=== PATIENT | female | born 1950 | race Caucasian/White ===

== ENCOUNTER 2017-09-30 09:19 | Emergency (ER) | payer MEDICARE, OTHER ==
[~2017-09-30] VITALS: Ht 157.5 cm; Wt 99.3 kg
--- OUTSIDE RECORDS SUMMARY | ~2017-09-30 | XMS | Encounter Summary ---
Demographics + + + | Address | [address] | | | [place] [address] | + + + | Home Phone | | + + + | Preferred Language | Unknown | + + + | Marital Status | | + + + | Presybeterian Affiliation | 1009 | + + + | Race | Unknown | + + + | Ethnic Group | Unknown | + + + Author + + + | Author | [facility] | | | and [place] | + + + | Organization | [facility] | | | and [place] | + + + | Address | Unknown | + + + | Phone | Unavailable | + + + Support + + +---------+ + | Name | Relationship | Address | Phone | + + +---------+ + | Dokka,Kin E | ECON | Unknown | | + + +---------+ + Care Team Providers + +------+ + | Care Director Of Undergraduate Admissions Name | Role | Phone | + +------+ + | Higinio Knapp MD | PCP | | + +------+ + Encounter Details +--------+ + + + + | Date | Type | Department | Care Team | Description | +--------+ + + + + | 07/02/ | Procedure | [facility] | | | | 2017 | Pass | [facility] [address] | | | | | | [place], | | | | | | [place] [address] | | | | | | [phone] | | | +--------+ + + + + Social History + + + +--------+ + | Tobacco Use | Types | Packs/Day | Years | Date | | | | | Used | | + + + +--------+ + | Former Smoker | Cigarettes | 1 | 12 | Quit: 07/16/1990 | + + + +--------+ + + +---+---+---+ | Smokeless Tobacco: | | | | | Never Used | | | | + +---+---+---+ + + +---------+ + | Alcohol Use | Drinks/We | oz/Week | Comments | | | ek | | | + + +---------+ + | No | | | | + + +---------+ + + + + | Sex Assigned at | Date Recorded | | | | + + + | Not on file | | + + + as of this encounter Plan of Treatment Not on fileas of this encounter Visit Diagnoses Not on filein this encounter"
--- OUTSIDE RECORDS SUMMARY | ~2017-09-30 | XMS | Encounter Summary ---
Demographics + + + | Address | [address] | | | [place] [address] | + + + | Home Phone | | + + + | Preferred Language | Unknown | + + + | Marital Status | | + + + | Amish Affiliation | 1009 | + + + | Race | Unknown | + + + | Ethnic Group | Unknown | + + + Author + + + | Author | [facility] | | | and [place] | + + + | Organization | [facility] | | | and [...] Team Providers + +------+ + | Care Talent Sourcer Name | Role | Phone | + +------+ + | Higinio Knapp MD | PCP | | + +------+ + Reason for Referral Diagnostic/Screening (Routine) +--------+--------+ + + + + | Status | Reason | Specialty | Diagnoses / | Referred By | Referred To | | | | | Procedures | Contact | Contact | +--------+--------+ + + + + | Closed | | Radiology | Diagnoses | Kristie Roldan | [facility] | | | | | Renal cyst | MD [address] | [address] | | | | | Procedures | [address] | [place], | | | | | MRI Abdomen | [place] | [place] | | | | | w wo | [place] | [address] | | | | | Contrast | [address] | Phone: | | | | | MRI Abdomen | Phone: | [phone] | | | | | w Contrast | [phone] | Fax: | | | | | | Fax: | [phone] | | | | | | [phone] | | +--------+--------+ + + + + Diagnostic/Screening (Routine) +--------+--------+ + + + + | Status | Reason | Specialty | Diagnoses / | Referred By | Referred To | | | | | Procedures | Contact | Contact | +--------+--------+ + + + + | Closed | | Radiology | Diagnoses | Kristie Roldan | [facility] | | | | | Renal cyst | MD [address] | [address] | | | | | Procedures | [address] | [place], | | | | | MRI Abdomen | [place] | [place] | | | | | w wo | [place] | [address] | | | | | Contrast | [address] | Phone: | | | | | MRI Abdomen | Phone: | [phone] | | | | | w Contrast | [phone] | Fax: | | | | | | Fax: | [phone] | | | | | | [phone] | | +--------+--------+ + + + + Reason for Visit Diagnostic/Screening (Routine) +--------+--------+ + + + + | Status | Reason | Specialty | Diagnoses / | Referred By | Referred To | | | | | Procedures | Contact | Contact | +--------+--------+ + + + + | Closed | | Radiology | Diagnoses | Kristie Roldan | [facility] | | | | | Renal cyst | MD [address] | [address] | | | | | Procedures | [address] | [place], | | | | | MRI Abdomen | [place] | [place] | | | | | w wo | [place] | [address] | | | | | Contrast | [address] | Phone: | | | | | MRI Abdomen | Phone: | [phone] | | | | | w Contrast | [phone] | Fax: | | | | | | Fax: | [phone] | | | | | | [phone] | | +--------+--------+ + + + + Encounter Details +--------+ + + + + | Date | Type | Department | Care Team | Description | +--------+ + + + + | 07/11/ | Hospital | [facility] | Kristie Roldan MD | Renal cyst | | 2018 | Encounter | MED CTR MRI [address] [facility] | | | | | [place], | [place] | | | | | [place] [address] | [address] | | | | | [phone] | [phone] | | | | | | | | +--------+ + + + [...] + + + as of this encounter Medications at Time of Discharge + + +-------+---------+ + + | Medication | Sig. | Disp. | Refills | Start | End Date | | | | | | Date | | + + +-------+---------+ + + | albuterol 90 | Inhale 2 puffs into | | | | | | mcg/puff inhaler | the lungs. | | | | | + + +-------+---------+ + + | chlorpheniramine | Take 4 mg by mouth | | | | | | (EQ CHLORTABS) 4 MG | every 6 hours as | | | | | | tablet | needed for | | | | | | | Allergies. | | | | | + + +-------+---------+ + + | esomeprazole | take 1 capsule by | | 0 | 05/03/19 | | | (NEXIUM) 40 mg | mouth once daily | | | 18 | | | capsule | | | | | | + + +-------+---------+ + + | gabapentin | Take 100 mg by mouth | | | | | | (NEURONTIN) 100 mg | 3 times daily. | | | | | | capsule | | | | | | + + +-------+---------+ + + | gabapentin | Take 300 mg by mouth | | | | | | (NEURONTIN) 300 mg | 3 times daily. | | | | | | capsule | | | | | | + + +-------+---------+ + + | levothyroxine | take 1 tablet by | | 0 | 05/21/19 | | | (SYNTHROID) 150 mcg | mouth every morning | | | 18 | | | tablet | ON AN EMPTY STOMACH | | | | | + + +-------+---------+ + + | lovastatin | Take 40 mg by mouth | | 0 | 11/03/19 | | | (MEVACOR) 40 MG | nightly. | | | 17 | | | tablet | | | | | | + + +-------+---------+ + + | pramipexole | Take 1 mg by mouth 3 | | | | | | (MIRAPEX) 1 MG | times daily. | | | | | | tablet | | | | | | + + +-------+---------+ + + | sertraline | | | 0 | 10/21/19 | | | (ZOLOFT) 100 mg | | | | 17 | | | tablet | | | | | | + + +-------+---------+ + + as of this encounter Plan of Treatment Not on fileas of this encounter Procedures + +--------+ + + + | Procedure Name | Priori | Date/Time | Associated Diagnosis | Comments | | | ty | | | | + +--------+ + + + | MRI ABDOMEN W WO | Routin | 07/11/2017 | Renal cyst | Results for this | | CONTRAST | e | 1035 PDT | | procedure are in the | | | | | | results section. | + +--------+ + + + in this encounter Results MRI Abdomen w wo Contrast (07/11/2017 1035) + + + | Narrative | Performed At | + + + | MRI ABDOMEN W WO CONTRAST 07/11/2017 10:22 AM HISTORY: RENAL | [facility] | | CYST. COMPARISON: 06/24/2017 PROTOCOL: Coronal T2, axial T2, | | | axial T2 fat sat, axial T1 in phase imaging, axial T1 out of phase | | | imaging, axial diffusion weighted, axial T1, axial T1 postcontrast, | | | coronal T1 postcontrast. Postcontrast images were acquired in the | | | arterial, portal venous, delayed, and hepatobiliary phases. The | | | patient was administered 10 cc Gadavist. FINDINGS: Chest base is | | | normal. The liver demonstrates normal parenchyma. The gallbladder | | | is normal. Biliary ducts are unremarkable. Redemonstration of a | | | small splenule. Remainder of the spleen is surgically absent. Adrenal | | | glands are normal. Previous identified 3.1 by a 2.5 x 2.3 cm mass | | | within the pancreatic tail which appears to be of pancreatic origin | | | (or less likely remnant splenic tissue) is reidentified and | | | demonstrates diffuse enhancement. This is overall stable since | | | 03/02/2014. Previous identified small isodense cystic lesion in the | | | mid/superior pole of the right kidney is T2 hyperintense and T1 | | | isointense. No evidence of enhancing component, compatible with a | | | simple cyst with likely minimal internal hemorrhage or proteinaceous | | | components, benign other simple subcentimeter cystic lesions are | | | identified within both kidneys. The stomach is normal. Imaged | | | small bowel and colon demonstrate no acute findings. Large epiploic | | | appendage is identified in the left greater omental region measuring | | | 3.9 cm and without evidence of suspicious postcontrast enhancement or | | | surrounding inflammatory change to suggest epiploic appendagitis. | | | Aorta is nonaneurysmal. IVC is unremarkable. No enlarged lymph nodes | | | are visualized within the omentum or retroperitoneum. There is no | | | evidence for ascites or free air. Post surgical changes are seen | | | along the anterior abdominal wall. Multiple surgical clips are | | | identified within the mesentery and left retroperitoneal region. | | | There are no acute osseous abnormalities. IMPRESSION - | | | Previous identified isodense lesion along the mid/superior anterior | | | aspect of the right kidney represents a benign simple cyst with | | | likely minimal internal proteinaceous or hemorrhagic debris. | | | -Bosniak category 2: Benign with no further follow-up imaging needed. | | | Previous identified 3.1 by a 2.5 x 2.3 cm mass within the | | | pancreatic tail which appears to be of pancreatic origin (or less | | | likely remnant splenic tissue) is reidentified and demonstrates | | | diffuse enhancement. This is overall stable since 03/02/2014. | | | -Differential is unclear. Given its long-term stability, this most | | | likely represents a benign entity with a slow-growing pancreatic | | | neoplasm not excluded. -Surveillance imaging in one year may be | | | considered to assess continued stability. Large epiploic | | | appendage is identified in the left greater omental region measuring | | | 3.9 cm, without evidence of suspicious postcontrast enhancement or | | | surrounding inflammatory change to suggest epiploic appendagitis. | | | Dictated and Signed by: Sanju Oscar MD Electronically signed: | | | 07/11/2017 2:24 PM | | + + + + + | Procedure Note | + + | Wade, Rad Results In - 07/11/2017 1427 PDT MRI ABDOMEN W WO CONTRAST 07/11/2017 10:22 | | AMHISTORY: RENAL CYST.COMPARISON: 06/24/2017PROTOCOL: Coronal T2, axial T2, axial T2 fat | | sat, axial T1 in phase imaging,axial T1 out of phase imaging, axial diffusion weighted, | | axial T1, axial [id number], coronal T1 postcontrast. Postcontrast images were | | acquired in thearterial, portal venous, delayed, and hepatobiliary phases. The patient | | wasadministered 10 cc Gadavist.FINDINGS:Chest base is normal.The liver demonstrates | | normal parenchyma. The gallbladder is normal. Biliaryducts are | | unremarkable.Redemonstration of a small splenule. Remainder of the spleen is | | surgicallyabsent. Adrenal glands are normal.Previous identified 3.1 by a 2.5 x 2.3 cm | | mass within the pancreatic tail whichappears to be of pancreatic origin (or less likely | | remnant splenic tissue) isreidentified and demonstrates diffuse enhancement. This is | | overall stable since03/02/2014.Previous identified small isodense cystic lesion in the | | mid/superior pole of theright kidney is T2 hyperintense and T1 isointense. No evidence | | of enhancingcomponent, compatible with a simple cyst with likely minimal internal | | hemorrhageor proteinaceous components, benign other simple subcentimeter cystic | | lesionsare identified within both kidneys.The stomach is normal. Imaged small bowel and | | colon demonstrate no acutefindings. Large epiploic appendage is identified in the left | | greater omentalregion measuring 3.9 cm and without evidence of suspicious | | postcontrastenhancement or surrounding inflammatory change to suggest epiploic | | appendagitis.Aorta is nonaneurysmal. IVC is unremarkable. No enlarged lymph nodes | | arevisualized within the omentum or retroperitoneum.There is no evidence for ascites or | | free air.Post surgical changes are seen along the anterior abdominal wall. | | Multiplesurgical clips are identified within the mesentery and left | | retroperitonealregion. There are no acute osseous abnormalities.IMPRESSION -Previous | | identified isodense lesion along the mid/superior anterior aspect ofthe right kidney | | represents a benign simple cyst with likely minimal internalproteinaceous or hemorrhagic | | debris. -Bosniak category 2: Benign with no further follow-up imaging needed.Previous | | identified 3.1 by a 2.5 x 2.3 cm mass within the pancreatic tail whichappears to be of | | pancreatic origin (or less likely remnant splenic tissue) isreidentified and | | demonstrates diffuse enhancement. This is overall stable since03/02/2014.-Differential is | | unclear. Given its long-term stability, this most likelyrepresents a benign entity with | | a slow-growing pancreatic neoplasm not excluded.-Surveillance imaging in one year may | | be considered to assess continuedstability.Large epiploic appendage is identified in the | | left greater omental regionmeasuring 3.9 cm, without evidence of suspicious | | postcontrast enhancement orsurrounding inflammatory change to suggest epiploic | | appendagitis.Dictated and Signed by: Sanju Oscar MD Electronically signed: 07/11/2017 | | 2:24 PM | |Aorta is nonaneurysmal. IVC is unremarkable. No enlarged lymph nodes are | |visualized within the omentum or retroperitoneum. | | | |There is no evidence for ascites or free air. | | | |Post surgical changes are seen along the anterior abdominal wall. Multiple | |surgical clips are identified within the mesentery and left retroperitoneal | |region. There are no acute osseous abnormalities. | | | | | | | |IMPRESSION - | |Previous identified isodense lesion along the mid/superior anterior aspect of | |the right kidney represents a benign simple cyst with likely minimal internal | |proteinaceous or hemorrhagic debris. | |-Bosniak category 2: Benign with no further follow-up imaging needed. | | | |Previous identified 3.1 by a 2.5 x 2.3 cm mass within the pancreatic tail which | |appears to be of pancreatic origin (or less likely remnant splenic tissue) is | |reidentified and demonstrates diffuse enhancement. This is overall stable since | |03/02/2014. | |-Differential is unclear. Given its long-term stability, this most likely | |represents a benign entity with a slow-growing pancreatic neoplasm not excluded. | |-Surveillance imaging in one year may be considered to assess continued | |stability. | | | | | |Large epiploic appendage is identified in the left greater omental region | |measuring 3.9 cm, without evidence of suspicious postcontrast enhancement or | |surrounding inflammatory change to suggest epiploic appendagitis. | | | |Dictated and Signed by: Sanju Oscar MD | | Electronically signed: 07/11/2017 2:24 PM | + + + +---------+ + + | Performing | Address | City/State/Zipcode | Phone Number | | Organization | | | | + +---------+ + + | [facility] | | | | + +---------+ + + in this encounter Visit Diagnoses + + | Diagnosis | + + | Renal cyst | + + | Unspecified congenital cystic kidney disease | + + Administered Medications + +--------+ +--------+------+------+ | Medication Order | MAR | Action | Dose | Rate | Site | | | Action | Date | | | | + +--------+ +--------+------+------+ | gadobutrol (GADAVIST) injection | Given | | 10 mLs | | | | 10 mL 10 mL, Intravenous, ONCE | | 8 10:26 | | | | | PRN, Other, Starting Yoli 07/11/17 | | PDT | | | | | at 1025, For 1 dose, MRI | | | | | | + +--------+ +--------+------+------+ +---+---+ | | | +---+---+ in this encounter"
--- OUTSIDE RECORDS SUMMARY | ~2017-09-30 | XMS | Clinical Summary ---
Demographics + + + | Address | [address] | | | [place] [address] | + + + | Home Phone | | + + + | Preferred Language | Unknown | + + + | Marital Status | | + + + | Bahai Affiliation | Unknown | + + + | Race | Unknown | + + + | Ethnic Group | Unknown | + + + Author + + + | Author | [facility] | + + + | Organization | [facility] | + + + | Address | Unknown | + + + | Phone | Unavailable | + + + Support + + + + + | Name | Relationship | Address | Phone | + + + + + | Message,Detail | ECON | Unknown | | + + + + + | Kin Avila | ECON | [address] | | | | | [place] | | | | | [phone] | | + + + + + Care Team Providers + +------+ + | Care Retinal Angiographer Name | Role | Phone | + +------+ + | Carlos Lowe DO | PP | | + +------+ + Allergies + + + + + + | Active Allergy | Reactions | Severity | Noted | Comments | | | | | Date | | + + + + + + | Codeine | Nausea and Vomiting | Low | 02/09/20 | | | | | | 14 | | + + + + + + | Morphine | Nausea and Vomiting, | Medium | 02/09/20 | Chest Pains | | | Other (See | | 14 | | | | Comments) | | | | + + + + + + | Oxycodone | Nausea and Vomiting | Low | 02/09/20 | | | | | | 14 | | + + + + + + | Vancomycin | Other (See Comments) | High | 02/09/20 | Kidney Failure | | | | | 14 | | + + + + + + Current Medications + + + +---------+------+------+-------+ | Prescription | Sig. | Disp. | Refills | Star | End | Statu | | | | | | t | Date | s | | | | | | Date | | | + + + +---------+------+------+-------+ | gabapentin | Take 300 mg by mouth | | | | | Activ | | (NEURONTIN) 300 MG | nightly. | | | | | e | | capsule | | | | | | | + + + +---------+------+------+-------+ | pramipexole | Take 0.125 mg by | | | | | Activ | | (MIRAPEX) 0.125 MG | mouth 3 (three) | | | | | e | | tablet | times daily. | | | | | | + + + +---------+------+------+-------+ | omeprazole | Take 40 mg by mouth | | | | | Activ | | (PRILOSEC) 40 MG | every morning before | | | | | e | | capsule | breakfast. | | | | | | + + + +---------+------+------+-------+ | levothyroxine | Take 137 mcg by | | | | | Activ | | (SYNTHROID) 137 MCG | mouth every morning | | | | | e | | tablet | before breakfast. | | | | | | + + + +---------+------+------+-------+ | Cranberry 125 MG | Take by mouth. | | | | | Activ | | TABS | | | | | | e | + + + +---------+------+------+-------+ | fexofenadine | Take 60 mg by mouth | | | | | Activ | | (JING) 60 MG | daily. | | | | | e | | tablet | | | | | | | + + + +---------+------+------+-------+ | aspirin 81 MG EC | Take 81 mg by mouth | | | | | Activ | | tablet | daily with | | | | | e | | | breakfast. | | | | | | + + + +---------+------+------+-------+ | albuterol (PROAIR | Inhale 2 puffs into | | | | | Activ | | HFA) 108 (90 BASE) | the lungs every 4 | | | | | e | | MCG/ACT inhaler | (four) hours as | | | | | | | | needed for Wheezing. | | | | | | + + + +---------+------+------+-------+ | calcium carbonate | Take 600 mg by mouth | | | | | Activ | | (OS-JERMAINE) 600 MG TABS | 2 (two) times daily | | | | | e | | | with meals. | | | | | | + + + +---------+------+------+-------+ | Vitamin D, | Take by mouth. | | | | | Activ | | Cholecalciferol, | | | | | | e | | 1000 UNITS TABS | | | | | | | + + + +---------+------+------+-------+ | diclofenac dodium | Take 100 mg by mouth | | | | | Activ | | CR (VOLTAREN XR) 100 | daily with | | | | | e | | MG 24 hr tablet | breakfast. | | | | | | + + + +---------+------+------+-------+ | diphenhydrAMINE | Take 25 mg by mouth | | | | | Activ | | (SOMINEX) 25 MG | nightly as needed | | | | | e | | tablet | for Sleep. | | | | | | + + + +---------+------+------+-------+ | Ferrous Sulfate | Take 325 mg by | | | | | Activ | | (IRON) 325 (65 FE) | mouth. | | | | | e | | MG TABS | | | | | | | + + + +---------+------+------+-------+ | sertraline | Take 25 mg by mouth | | | | | Activ | | (ZOLOFT) 25 MG | daily. | | | | | e | | tablet | | | | | | | + + + +---------+------+------+-------+ | [place] 3-6-9 Fatty | Take by mouth. | | | | | Activ | | Acids (TRIPLE | | | | | | e | | OMEGA-3-6-9 PO) | | | | | | | + + + +---------+------+------+-------+ | cyanocobalamin | Take 100 mcg by | | | | | Activ | | (VITAMIN B-12) 100 | mouth daily. | | | | | e | | MCG tablet | | | | | | | + + + +---------+------+------+-------+ | pyridoxine | Take 100 mg by mouth | | | | | Activ | | (VITAMIN B-6) 100 MG | daily. | | | | | e | | tablet | | | | | | | + + + +---------+------+------+-------+ | ascorbic acid | Take 1,000 mg by | | | | | Activ | | (VITAMIN C) 1000 MG | mouth daily. | | | | | e | | tablet | | | | | | | + + + +---------+------+------+-------+ | Cholecalciferol | Take by mouth. | | | | | Activ | | (VITAMIN D3) 5000 | | | | | | e | | UNITS TABS | | | | | | | + + + +---------+------+------+-------+ | barium (READI-CAT) | Take barium oral | 900 mL | 0 | 01/1 | | Activ | | 2.1 % SUSP | prep per included | | | 3/20 | | e | | | written | | | 15 | | | | | instructions. | | | | | | + + + +---------+------+------+-------+ | gabapentin | Take 100 mg by mouth | | | | | Activ | | (NEURONTIN) 100 MG | 2 (two) times | | | | | e | | capsule | daily. 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 | + + + Family History + + +------+ + | Medical History | Relation | Name | Comments | + + +------+ + | Diabetes type II | Mother | | | + + +------+ + | Heart disease | Mother | | | + + +------+ + + +------+--------+ + | Relation | Name | Status | Comments | + +------+--------+ + | Mother | | | | + +------+--------+ + Social History + +-------+ +--------+------+ | Tobacco Use | Types | Packs/Day | Years | Date | | | | | Used | | + +-------+ +--------+------+ | Former Smoker | | 1 | 15 | | + +-------+ +--------+------+ + +---+---+---+ | Smokeless Tobacco: | | [...] on file | | + + + Last Filed Vital Signs + + + + | Vital Sign | Reading | Time Taken | + + + + | Blood Pressure | 142/83 | 04/20/2014 1:40 PM PST | + + + + | Pulse | 74 | 04/20/2014 1:40 PM PST | + + + + | Temperature | 36.7 C (98 F) | 04/05/2014 1:36 PM PST | + + + + | Respiratory Rate | 15 | 04/05/2014 1:36 PM PST | + + + + | Oxygen Saturation | 95% | 04/20/2014 1:40 PM PST | + + + + | Inhaled Oxygen | - | - | | Concentration | | | + + + + | Weight | 108.9 kg (240 lb 1.3 | 04/05/2014 9:09 AM PST | | | oz) | | + + + + | Height | 157.5 cm (5' 2") | 04/05/2014 9:09 AM PST | + + + + | Body Mass Index | 43.91 | 04/05/2014 9:09 AM PST | + + + + Plan of Treatment + + + + + | Health Maintenance | Due Date | Last Done | Comments | + + + + + | Vaccine: | | | | | Dtap/Tdap/Td (1 - | 1 | | | | Tdap) | | | | + + + + + | DEXA SCAN SCREENING | | | | | | 7 | | | + + + + + | Vaccine: | | | | | Pneumococcal 65+ | 7 | | | | Low/Medium Risk (1 | | | | | of 2 - PCV13) | | | | + + + + + | Vaccine: Influenza | | | | | (#1) | 8 | | | + + + + + Implants + +------+--------+ +--------+--------+--------+ | Implanted | Type | Area | Manufacture | Device | Expira | Model | | | | | r | | tion | / | | | | | | Identi | Date | Serial | | | | | | fier | | / Lot | + +------+--------+ +--------+--------+--------+ | Mesh Ventralex [place] W/Strap | | N/A: | [employer] | | 12/18/ | [id number] | | [address] [employer] - | | Abdome | ick | | 2015 | / | | [id number]: Qty: 1 on | | n | | | | /[id number] | | 04/05/2014 by Kin Richards, | | | | | | 028 | | MD | | | | | | | + +------+--------+ +--------+--------+--------+ Results Not on filefrom Last 3 Months Insurance + +--------+ +------+-------+ + | Payer | Benefi | Subscriber | Type | Phone | Address | | | t Plan | ID | | | | | | / | | | | | | | Group | | | | | + +--------+ +------+-------+ + | [employer] [place] - | [employer] | [id number] | | | [address] [address] | | [place] | [place] | | | | [place] | | | | | | | [phone] | + +--------+ +------+-------+ + + +--------+ +--------+ + + | Guarantor Name | Accoun | Relation to | Date | Phone | Billing Address | | | t Type | Patient | of | | | | | | | | | | + +--------+ +--------+ + + | MAHESH AVIL[place] | Person | Self [birth year] | Home: | [address] | | [address]/Fam | | 1950 | [phone] [place] | | | [place] | | | [phone] | [phone] | + +--------+ +--------+ + +
--- OUTSIDE RECORDS SUMMARY | ~2017-09-30 | XMS | Encounter Summary ---
Demographics + + + | Address | [address] | | | [place] [address] | + + + | Home Phone | | + + + | Preferred Language | Unknown | + + + | Marital Status | | + + + | Episcopalian Affiliation | 1009 | + + + | Race | Unknown | + + + | Ethnic Group | Unknown | + + + Author + + + | Author | [facility] | | | and [place] | + + + | Organization | [facility] | | | [...] Team Providers + +------+ + | Care Powerhouse Electrician Apprentice Name | Role | Phone | + +------+ + | Higinio Knapp MD | PCP | | + +------+ + Encounter Details +--------+ + + + + | Date | Type | Department | Care Team | Description | +--------+ + + + + | 07/05/ | Hospital | [facility] | Kristie Roldan MD | Nausea | | 2018 | Encounter | MED CTR XRAY [address] | [address] | | | | | [place] | [place], [place] | | | | | [place] [address] | [address] | | | | | [phone] | [phone] | | | | | | | | | | | | Rad, [facility] | | +--------+ + + + + [...] 1 capsule by | | 0 | 03/15/20 | | | (NEXIUM) 40 mg | [...] | + +--------+ + + + | [facility] | Routin | 07/05/2017 | Nausea | Results for this | | | e | 0808 PDT | | procedure are in the | | | | | | results section. | + +--------+ + + + in this encounter Results [facility] (07/05/2017 0808) + + + | Narrative | Performed At | + + + | DOUBLE CONTRAST UPPER GI 07/05/2017 8:06 AM CLINICAL HISTORY: | [facility] | | Nausea and multiple previous surgeries COMPARISON: CT JUNE 24 | | | TECHNIQUE: In the upright position, the patient ingested effervescent | | | crystals with a small amount of water. Fluoroscopic evaluation of | | | the thoracic esophagus was performed during swallows of thick | | | barium. The patient was placed horizontal, and additional | | | fluoroscopic evaluation of the stomach and duodenum | | | performed. Additional fluoroscopic evaluation of the esophagus was | | | performed during swallows of thin barium. Multiple spot images | | | were saved. The patient tolerated the procedure well, and there | | | were no complications. FINDINGS: Incomplete opening of the upper | | | esophageal sphincter is noted. The oropharynx and hypopharynx are | | | grossly unremarkable. The esophagus is normal in caliber and | | | demonstrates smooth contour without visible mucosal abnormality or | | | filling defect. Nonpropulsive tertiary esophageal contractions are | | | noted and there is stasis of contrast in the esophageal | | | lumen. Gastroesophageal reflux into the upper esophagus is noted | | | during the exam with changes in patient position. The stomach | | | demonstrates uniform smaller caliber than expected, corresponding | | | with changes of gastric surgery visible on recent CT imaging. There | | | is filling of a small structure along the margin of the | | | gastroesophageal junction demonstrating folds suggestive of a | | | paraesophageal hiatus hernia, which remains opacified throughout the | | | exam. The gastric folds are uniformly prominent, however no | | | conclusive filling defect or suspicious contour irregularity is | | | apparent. There is brisk passage of contrast into the duodenum, | | | however a defined duodenal bulb is not conclusively identified and | | | numerous surgical clips in the vicinity suggest potential altered | | | anatomy. No abnormality of the duodenal folds is | | | apparent. Contrast opacification of normal caliber jejunal | | | segments is noted at the conclusion of the exam. IMPRESSION - | | | 1. PROBABLE SMALL PARAESOPHAGEAL HIATUS HERNIA WITH | | | GASTROESOPHAGEAL REFLUX AND ESOPHAGEAL DYSMOTILITY | | | DESCRIBED. INCOMPLETE OPENING OF THE UPPER ESOPHAGEAL SPHINCTER IS | | | NOTED. 2. REDUCED CALIBER OF THE STOMACH AND SUBJECTIVE | | | PROMINENCE OF THE GASTRIC FOLDS WITH PROBABLE ALTERED ANATOMY AT THE | | | GASTRODUODENAL JUNCTION DISCUSSED. Dictated and Signed by: | | | Ollie Mederos MD Electronically signed: 07/05/2017 8:26 AM | | + + + + + | Procedure Note | + + | Wade, Rad Results In - 07/05/2017 0829 PDT DOUBLE CONTRAST UPPER GI 07/05/2017 8:06 AM | | | | CLINICAL HISTORY: Nausea and multiple previous surgeries | | | | COMPARISON: CT JUNE 24 | | | | TECHNIQUE: In the upright position, the patient ingested effervescent crystals | | with a small amount of water. Fluoroscopic evaluation of the thoracic esophagus | | was performed during swallows of thick barium. The patient was placed | | horizontal, and additional fluoroscopic evaluation of the stomach and duodenum | | performed. Additional fluoroscopic evaluation of the esophagus was performed | | during swallows of thin barium. Multiple spot images were saved. The patient | | tolerated the procedure well, and there were no complications. | | | | FINDINGS: Incomplete opening of the upper esophageal sphincter is noted. The | | oropharynx and hypopharynx are grossly unremarkable. The esophagus is normal in | | caliber and demonstrates smooth contour without visible mucosal abnormality or | | filling defect. Nonpropulsive tertiary esophageal contractions are noted and | | there is stasis of contrast in the esophageal lumen. Gastroesophageal reflux | | into the upper esophagus is noted during the exam with changes in patient | | position. | | | | The stomach demonstrates uniform smaller caliber than expected, corresponding | | with changes of gastric surgery visible on recent CT imaging. There is filling | | of a small structure along the margin of the gastroesophageal junction | | demonstrating folds suggestive of a paraesophageal hiatus hernia, which remains | | opacified throughout the exam. The gastric folds are uniformly prominent, | | however no conclusive filling defect or suspicious contour irregularity is | | apparent. There is brisk passage of contrast into the duodenum, however a | | defined duodenal bulb is not conclusively identified and numerous surgical clips | | in the vicinity suggest potential altered anatomy. No abnormality of the | | duodenal folds is apparent. Contrast opacification of normal caliber jejunal | | segments is noted at the conclusion of the exam. | | | | IMPRESSION - | | 1. PROBABLE SMALL PARAESOPHAGEAL HIATUS HERNIA WITH GASTROESOPHAGEAL REFLUX AND | | ESOPHAGEAL DYSMOTILITY DESCRIBED. INCOMPLETE OPENING OF THE UPPER ESOPHAGEAL | | SPHINCTER IS NOTED. | | | | 2. REDUCED CALIBER OF THE STOMACH AND SUBJECTIVE PROMINENCE OF THE GASTRIC | | FOLDS WITH PROBABLE ALTERED ANATOMY AT THE GASTRODUODENAL JUNCTION DISCUSSED. | | | | Dictated and Signed by: Ollie Mederos MD | | Electronically signed: 07/05/2017 8:26 AM | + + + +---------+ + + | Performing | Address | City/State/Zipcode | Phone Number | | Organization | | | | + +---------+ + + | [facility] | | | | + +---------+ + + in this encounter Visit Diagnoses + + | Diagnosis | + + | Nausea | + + | Nausea alone | + + Administered Medications + +--------+ +---------+------+------+ | Medication Order | MAR | Action | Dose | Rate | Site | | | Action | Date | | | | + +--------+ +---------+------+------+ | barium (E-Z-HD) 98% contrast | Given | | 135 mLs | | | | suspension 135 mL 135 mL, Oral, | | 8 8:08 | | | | | ONCE PRN, Other, Starting Fri | | PDT | | | | | 07/05/17 at 0806, For 1 dose, | | | | | | | Shake well. | | | | | | + +--------+ +---------+------+------+ +---+---+ | | | +---+---+ + +-------+ +--------+---+---+ | barium (LIQUID E-Z-PAQUE) 60% | Given | | 45 mLs | | | | contrast suspension 45 mL 45 mL, | | 8 8:08 | | | | | Oral, ONCE PRN, Other, Starting | | PDT | | | | | 07/05/17 at 0806, For 1 dose, | | | | | | | Shake well. | | | | | | + +-------+ +--------+---+---+ +---+---+ | | | +---+---+ in this encounter"
--- OUTSIDE RECORDS SUMMARY | ~2017-09-30 | XMS | Clinical Summary ---
Demographics + + + | Address | [address] | | | [place] [address] | + + + | Home Phone | | + + + | Preferred Language | Unknown | + + + | Marital Status | | + + + | Mu-Ism Affiliation | BAP | + + + | Race | White | + + + | Ethnic Group | Not or | + + + Author + + + | Author | [facility] | + + + | Organization | [facility] | + + + | Address | Unknown | + + + | Phone | Unavailable | + + + Support + + + + + | Name | Relationship | Address | Phone | + + + + + | Kin Avila | ECON | [address] | | | | | [place] | | | | | [address] | | + + + + + Care Team Providers + +------+ + | Care Contracting Engineer Name | Role | Phone | + +------+ + | Michael Calzada MD | PP | | + +------+ + Source Comments JAIDA is fully live on both [facility] Ambulatory and [facility] InPatient.[facility] Allergies + + + + + + | Active Allergy | Reactions | Severity | Noted | Comments | | | | | Date | | + + + + + + | Codeine | | | 07/05/19 | Pt stated it makes | | | | | 11 | her feel like her | | | | | | chest is going to | | | | | | explode, that she | | | | | | can't lay down, | | | | | | can't stand up and | | | | | | after a period | | | | | | finally the | | | | | | sensation resolves | + + + + + + | Morphine | | | 07/05/19 | Pt reported the | | | | | 11 | she has the same | | | | | | chest discomfort | | | | | | with Morphine as | | | | | | with codeine. She | | | | | | denied having this | | | | | | response from the | | | | | | dilaudid she | | | | | | received earlier to | | | | | | day. | + + + + + + | Oxycodone Hcl | | | 07/05/19 | | | | | | 11 | | + + + + + + Current Medications + + + +---------+------+------+-------+ | Prescription | Sig. | Disp. | Refills | Star | End | Statu | | | | | | t | Date | s | | | | | | Date | | | + + + +---------+------+------+-------+ | albuterol 0.083% | Inhale 2.5 mg every | | | | | Activ | | 2.5 mg /3 mL (0.083 | four hours as | | | | | e | | %) Inhalation | needed. | | | | | | | Solution for | | | | | | | | Nebulization | | | | | | | + + + +---------+------+------+-------+ | Levothyroxine 137 | Take 137 mcg by | | | | | Activ | | mcg Oral Capsule | mouth once daily. | | | | | e | + + + +---------+------+------+-------+ | albuterol (PROAIR | Inhale 2 Puffs every | | | | | Activ | | HFA) 90 | four hours as | | | | | e | | mcg/Actuation | needed. | | | | | | | Inhalation HFA | | | | | | | | Aerosol Inhaler | | | | | | | + + + +---------+------+------+-------+ | acetaminophen 325 | Take 1-2 Tabs by | | | 05/2 | | Activ | | mg Oral Tablet | mouth every four | | | 6/20 | | e | | | hours as needed. | | | 11 | | | + + + +---------+------+------+-------+ | bisacodyl 10 mg | Insert 1 Suppository | | | 05/2 | | Activ | | Rectal Suppository | rectally once daily | | | 08/07 | | e | | | as needed for | | | 11 | | | | | constipation. | | | | | | + + + +---------+------+------+-------+ | docusate sodium | Take 1 Cap by mouth | | | 05/2 | | Activ | | 100 mg Oral Capsule | two times daily. | | | 6 | | e | | | | | | 11 | | | + + + +---------+------+------+-------+ | enoxaparin 30 | Inject 0.3 mL under | | | 05/2 | | Activ | | mg/0.3 mL | the skin (SUBC) once | | | 620 | | e | | Subcutaneous Syringe | daily in the | | | 11 | | | | | evening. | | | | | | + + + +---------+------+------+-------+ | HYDROmorphone | Inject 0.5-1 mg into | | | 05/2 | | Activ | | | the vein (IV) every | | | 6/20 | | e | | | two hours as | | | 11 | | | | | needed. | | | | | | + + + +---------+------+------+-------+ | HYDROmorphone 2 mg | Take 1 Tab by mouth | | 0 | 05/2 | | Activ | | Oral Tablet | every three hours as | | | 6/20 | | e | | | needed for severe | | | 11 | | | | | pain. | | | | | | + + + +---------+------+------+-------+ | nitroglycerin 0.4 | Place 1 Tab under | 25 Tab | | 05/2 | | Activ | | mg Sublingual | tongue every five | | | 6/20 | | e | | Tablet, Sublingual | minutes as needed | | | 11 | | | | | for chest pain. Do | | | | | | | | not crush. Place | | | | | | | | under tongue and | | | | | | | | allow to dissolve. | | | | | | | | Administer every 5 | | | | | | | | minutes for a | | | | | | | | maximum of 3 doses | | | | | | | | in 15 minutes. | | | | | | + + + +---------+------+------+-------+ | omeprazole 20 mg | Take 1 Cap by mouth | | | /2 | | Activ | | Oral Capsule, | once daily. | | | 08/07 | | e | | Delayed | | | | 11 | | | | Release(E.C.) | | | | | | | + + + +---------+------+------+-------+ | ondansetron 4 mg/2 | Inject 2 mL into the | | | /2 | | Activ | | mL Injection | vein (IV) every | | | 08/07 | | e | | Solution | twelve hours as | | | 11 | | | | | needed. | | | | | | + + + +---------+------+------+-------+ | polyethylene | Take 17 g by mouth | 119 g | | /2 | | Activ | | glycol 17 gram/dose | twice daily as | | | 08/07 | | e | | Oral Powder | needed. | | | 11 | | | + + + +---------+------+------+-------+ | prochlorperazine 5 | Inject 0.5-1 mL into | | | 05/2 | | Activ | | mg/mL Injection | the vein (IV) every | | | 620 | | e | | Solution | four hours as | | | 11 | | | | | needed. | | | | | | + + + +---------+------+------+-------+ | temazepam 30 mg | Take 1 Cap by mouth | | | 05/2 | | Activ | | Oral Capsule | once daily at | | | 20 | | e | | | bedtime as needed. | | | 11 | | | + + + +---------+------+------+-------+ | calcium carbonate | Take 1 Tab by mouth | | | 05/2 | | Activ | | chewable 200 mg | three times daily. | | | 620 | | e | | calcium (500 mg) | | | | 11 | | | | Oral Tablet, | | | | | | | | Chewable | | | | | | | + + + +---------+------+------+-------+ | doxepin 10 mg Oral | Take 1 Cap by mouth | | | /2 | | Activ | | Capsule | once daily at | | | 08/07 | | e | | | bedtime. | | | 11 | | | + + + +---------+------+------+-------+ | sertraline | Take 1 Tab by mouth | | | /2 | | Activ | | (ZOLOFT) 50 mg Oral | once daily. 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 | + + + + + | Hypothyroid | 07/05/2010 | + + + | Pulmonary embolism (HCC) | 07/05/2010 | + + + + + | Overview: History of PE 05/29 in [place]. No record of | | anticoagulation. Records requested. | + + + + + | Atrial fibrillation (HCC) | 07/05/2010 | + + + | Abdominal abscess | 07/04/2010 | + + + | Hypoxia | 07/04/2010 | + + + Immunizations + + + + | Name | Dates Previously Given | Next Due | + + + + | Hib-HbOC | 07/07/2010 | | + + + + | MPSV4 | 07/07/2010 | | + + + + | Pneumococcal 23 | 07/07/2010 | | + + + + Family History + + +------+ + | Medical History | Relation | Name | Comments | + + +------+ + | Diabetes | Mother | | | + + +------+ + | Heart Disease | Mother | | | + + +------+ + + +------+--------+ + | Relation | Name | Status | Comments | + +------+--------+ + | Mother | | | | + +------+--------+ + Social History + +-------+ +--------+------+ | Tobacco Use | Types | Packs/Day | Years | Date | | | | | Used | | + +-------+ +--------+------+ | Never Smoker | | | | | + +-------+ +--------+------+ + + + | Sex Assigned at | Date Recorded | | | | + + + | Not on file | | + + + Last Filed Vital Signs + + + + | Vital Sign | Reading | Time Taken | + + + + | Blood Pressure | 133/78 | 07/13/2010 8:20 AM PDT | + + + + | Pulse | 74 | 07/13/2010 8:20 AM PDT | + + + + | Temperature | 36.9 C (98.4 F) | 07/13/2010 8:20 AM PDT | + + + + | Respiratory Rate | 16 | 07/13/2010 8:20 AM PDT | + + + + | Oxygen Saturation | 89% | 07/13/2010 8:20 AM PDT | + + + + | Inhaled Oxygen | - | - | | Concentration | | | + + + + | Weight | 111.6 kg (246 lb) | 07/04/2010 6:46 PM PDT | + + + + | Height | 160 cm (5' 3") | 07/04/2010 6:46 PM PDT | + + + + | Body Mass Index | 43.58 | 07/04/2010 6:46 PM PDT | + + + + Plan of Treatment + + + + + | Health Maintenance | Due Date | Last Done | Comments | + + + + + | INFLUENZA VACCINE | | | | | (FLU SHOT) | 8 | | | + + + + + Results Not on filefrom Last 3 Months Insurance + +--------+ +------+-------+---------+ | Payer | Benefi | Subscriber | Type | Phone | Address | | | t Plan | ID | | | | | | / | | | | | | | Group | | | | | + +--------+ +------+-------+---------+ | [facility] | [place] | xxxxxxxxx | PPO | | | | | | | | | | | | HEALTH | | | | | | | CARE | | | | | + +--------+ +------+-------+---------+ + +--------+ +--------+ + + | Guarantor Name | Accoun | Relation to | Date | Phone | Billing Address | | | t Type | Patient | of | | | | | | | | | | + +--------+ +--------+ + + | MAHESH AVILA | Person | Self [birth year] Home: | [address] | | | al/Fam | | 1951 | [phone] | [place] | | | [place] | | | [phone] | + +--------+ +--------+ + +
--- OUTSIDE RECORDS SUMMARY | ~2017-09-30 | XMS | Clinical Summary ---
Demographics + + + | Address | [address] | | | [place] [address] | + + + | Home Phone | | + + + | Preferred Language | Unknown | + + + | Marital Status | | + + + | Mandaeism Affiliation | Unknown | + + + | Race | Unknown | + + + | Ethnic Group | Unknown | + + + Author + + + | Author | [facility] | + + + | Organization | [facility] [employer] | + + + | Address | [...] [place] | | | | | [address] | | + + + + + Care Team Providers + +------+ + | Care Glaze Wiper Name | Role | Phone | + [...] | | + + + +---------+------+------+-------+ | [place] 3-6-9 Fatty | Take by mouth. | [...] | + +------+--------+ +--------+--------+--------+ | [facility] [employer] [place] W/Strap | | N/A: | [facility] | | 12/18/ | [id number] | | [address] [facility] - | | Abdome | ick | | 2015 | / | | [id number]: Qty: 1 on | | n | [...] VEDA - J[place]ON - | CHAMPV | [id number] | | | [address] [address] | | [place] | [place] | | | | [place] | | | | | | | [address] | + +--------+ +------+-------+ + + +--------+ [...] | | al/Fam | | 1950 | [phone] | [place] | | | [place] | | | [phone] | [phone] | + +--------+ +--------+ + +
--- OUTSIDE RECORDS SUMMARY | ~2017-09-30 | XMS | Encounter Summary ---
Demographics + + + | Address | [address] | | | [place] [address] | + + + | Home Phone | | + + + | Preferred Language | Unknown | + + + | Marital Status | | + + + | Catholic Affiliation | 1009 | + + + | Race | Unknown | + + + | Ethnic Group | Unknown | + + + Author + + + | Author | [facility] | | | and [place] | + + + | Organization | [facility] | | | [...] Team Providers + +------+ + | Care Assurance Engineer Name | Role | Phone | [...] W | | | | | | [place], | | | | | | [place] [address] | | | | | | [phone] | | | +--------+ + + + [...]
--- OUTSIDE RECORDS SUMMARY | ~2017-09-30 | XMS | Encounter Summary ---
Demographics + + + | Address | [address] | | | [place] [address] | + + + | Home Phone | | + + + | Preferred Language | Unknown | + + + | Marital Status | | + + + | Adventist Affiliation | 1009 | + + + | Race | Unknown | + + + | Ethnic Group | Unknown | + + + Author + + + | Author | [facility] | | | and [place] | + + + | Organization | [facility] | | | [...] Team Providers + +------+ + | Care Welding Machine Operator Gas Name | Role | Phone | + [...] | MD Kelvin [address] | [address] | | | | | Procedures | [address] | [place], | | | | | MRI Abdomen | [place] | [place] | | | | | w wo | [place] | [address] | | | | | Contrast | [address] | Phone: | | | | | MRI Abdomen | Phone: | [phone] | | | | | w Contrast | [phone] | Fax: | | | | | | Fax: | [phone] | | | | | | [phone] | | +--------+--------+ + + + + Encounter Details +--------+ + + + + | Date | Type | Department | Care Team | Description | +--------+ + + + + | 07/02/ | Ancillary | [facility] | Kristie Roldan MD | Renal cyst | | 2018 | Orders | MED CTR XRAY [address] | [address] | | | | | [place] | [place], [place] | | | | | [place] [address] | [address] | | | | | [phone] | [phone] | | | | | | | [...] Treatment Not on fileas of this encounter Results MRI Abdomen w wo [...] diffusion weighted, | | axial T1, axial [id number], coronal T1 postcontrast. Postcontrast images were | [...] Unspecified congenital cystic kidney disease | + +"
--- OUTSIDE RECORDS SUMMARY | ~2017-09-30 | XMS | Encounter Summary ---
Demographics + + + | Address | [address] | | | [place] [address] | + + + | Home Phone | | + + + | Preferred Language | Unknown | + + + | Marital Status | | + + + | Hindu Affiliation | 1009 | + + + | Race | Unknown | + + + | Ethnic Group | Unknown | + + + Author + + + | Author | [facility] | | | and [place] | + + + | Organization | [facility] | | | and [...] Team Providers + +------+ + | Care Elastic Attacher Overlock Name | Role | Phone | + +------+ + | Higinio Knapp MD | PCP | | + +------+ + Encounter Details +--------+ + + + + | Date | Type | Department | Care Team | Description | +--------+ + + + + | 07/05/ | Hospital | [facility] | Kristie Roldan MD | Nausea | | 2018 | Encounter | MED CTR XRAY [address] | [address] | | | | | [place] | [place], [place] | | | | | [place] [address] | [address] | | | | | [phone] | [phone] | | | | | | | [...]
--- OUTSIDE RECORDS SUMMARY | ~2017-09-30 | XMS | Clinical Summary ---
Demographics + + + | Address | [address] | | | [place] [address] | + + + | Home Phone | | + + + | Preferred Language | Unknown | + + + | Marital Status | | + + + | Orthodoxy Affiliation | BAP | + + + [...] + | Kin Avila | ECON | [address] | | | | | [place] | | | | | [address] | | + + + + + Care Team Providers + +------+ + | Care Car Barn Laborer Name | Role | Phone | + +------+ + | Michael Calzada MD | PP | | + +------+ + Source Comments JAIDA is fully live on both [facility] Ambulatory and [facility] InPatient.[facility] Allergies + + + + + + [...] | | | + +--------+ +------+-------+---------+ | [facility] | UNITED | xxxxxxxxx | PPO | [...] | [place] | | | [phone] | [phone] | + +--------+ +--------+ + +
--- OUTSIDE RECORDS SUMMARY | ~2017-09-30 | XMS | Clinical Summary ---
Demographics + + + | Address | [address] | | | [place] [address] | + + + | Home Phone | | + + + | Preferred Language | Unknown | + + + | Marital Status | | + + + | Zoroastrian Affiliation | 1009 | + + + | Race | Unknown | + + + | Ethnic Group | Unknown | + + + Author + + + | Author | [facility] | | | and [place] | + + + | Organization | [facility] | | | [...] Team Providers + +------+ + | Care Food Services Coordinator Name | Role | Phone | + +------+ + | Higinio Knapp MD | PP | | + +------+ + Allergies + + + + + + | Active Allergy | Reactions | Severity | Noted | Comments | | | | | Date | | + + + + + + | Codeine | Nausea And Vomiting | High | 10/27/19 | Chest pains | | | | | 14 | | + + + + + + | Morphine | Nausea And Vomiting | High | 10/27/19 | Chest pain | | | | | 14 | | + + + + + + | Oxycodone | Nausea And Vomiting | High | 10/27/19 | Chest pain. | | | | | 14 | | + + + + + + | Vancomycin | Other (See Comments) | High | 10/27/19 | Stops kidney's. | | | | | 14 | | + + + + + + Current Medications + + +-------+---------+------+------+-------+ | Prescription | Sig. | Disp. | Refills | Star | End | Statu | | | | | | t | Date | s | | | | | | Date | | | + + +-------+---------+------+------+-------+ | sertraline | | | 0 | 09/0 | | Activ | | (ZOLOFT) 100 mg | | | | 2/20 | | e | | tablet | | | | 17 | | | + + +-------+---------+------+------+-------+ | lovastatin | Take 40 mg by mouth | | 0 | 09/1 | | Activ | | (MEVACOR) 40 MG | nightly. | | | 5/20 | | e | | tablet | | | | 17 | | | + + +-------+---------+------+------+-------+ | chlorpheniramine | Take 4 mg by mouth | | | | | Activ | | (EQ CHLORTABS) 4 MG | every 6 hours as | | | | | e | | tablet | needed for | | | | | | | | Allergies. | | | | | | + + +-------+---------+------+------+-------+ | gabapentin | Take 300 mg by mouth | | | | | Activ | | (NEURONTIN) 300 mg | 3 times daily. | | | | | e | | capsule | | | | | | | + + +-------+---------+------+------+-------+ | gabapentin | Take 100 mg by mouth | | | | | Activ | | (NEURONTIN) 100 mg | 3 times daily. | | | | | e | | capsule | | | | | | | + + +-------+---------+------+------+-------+ | pramipexole | Take 1 mg by mouth 3 | | | | | Activ | | (MIRAPEX) 1 MG | times daily. | | | | | e | | tablet | | | | | | | + + +-------+---------+------+------+-------+ | esomeprazole | take 1 capsule by | | 0 | 03/1 | | Activ | | (NEXIUM) 40 mg | mouth once daily | | | 5/20 | | e | | capsule | | | | 18 | | | + + +-------+---------+------+------+-------+ | levothyroxine | take 1 tablet by | | 0 | 04/0 | | Activ | | (SYNTHROID) 150 mcg | mouth every morning | | | 2/20 | | e | | tablet | ON AN EMPTY STOMACH | | | 18 | | | + + +-------+---------+------+------+-------+ | albuterol 90 | Inhale 2 puffs into | | | | | Activ | | mcg/puff inhaler | the lungs. | | | | | e | + + +-------+---------+------+------+-------+ Active Problems + + + | Problem | Noted Date | + + + | Sacroiliitis, not elsewhere classified ([facility]) | 08/09/2015 | + + + | Sacroiliitis ([facility]) | 07/11/2015 | + + + | Carpal tunnel syndrome, left | 05/24/2015 | + + + | Obesity, Class III, BMI 40-49.9 (morbid obesity) ([facility]) | 09/07/2014 | + + + | S/P lumbar fusion | 09/03/2014 | + + + | Meralgia paresthetica of right side | 11/10/2013 | + + + | Foraminal stenosis of lumbar region | 11/10/2013 | + + + | Degenerative disc disease, lumbar | 11/10/2013 | + + + | Lumbar radiculopathy | 11/10/2013 | + + + | Facet arthropathy, lumbar (HCC) | 11/10/2013 | + + + Resolved Problems + + + + | Problem | Noted | Resolved | | | Date | Date | + + + + | Carpal tunnel syndrome, bilateral | 12/17/19 | | | | 15 | 6 | + + + + Encounters +--------+ + + + + | Date | Type | Specialty | Care Team | Description | +--------+ + + + + | 07/11/ | Hospital | | Kristie Roldan MD | Renal cyst | | 2017 | Encounter | | | | +--------+ + + + + | 07/05/ | Hospital | | Kristie Roldan MD | Nausea | | 2017 | Encounter | | Brennon Claire Rad | | +--------+ + + + + | 07/02/ | Procedure | | | | 2017 | Pass | | | | +--------+ + + + + | 07/02/ | Ancillary | | Kristie Roldan MD | Renal cyst | | 2018 | Orders | | | | +--------+ + + + + from Last 3 Months Family History + + +------+ + | Medical History | Relation | Name | Comments | + + +------+ + | Bleeding problems | Mother | | Blood clots | + + +------+ + | Diabetes | Mother | | | + + +------+ + | Heart disease | Mother | | | + + +------+ + | High blood pressure | Mother | | | + + +------+ + + +------+ + + | Relation | Name | Status | Comments | + +------+ + + | Father | | | | + +------+ + + | Mother | | | | + +------+ + + Social History + + + [...] + + + | Blood Pressure | 143/85 | 05/29/2017 0750 PDT | + + + + | Pulse | 86 | 05/29/2017749 PDT | + + + + | Temperature | 37.1 C (98.8 F) | 05/29/2017724 PDT | + + + + | Respiratory Rate | 14 | 05/29/2017724 PDT | + + + + | Oxygen Saturation | 94% | 05/29/2017749 PDT | + + + + | Inhaled Oxygen | - | - | | Concentration | | | + + + + | Weight | 117.3 kg (258 lb 9.6 | 05/29/2017618 PDT | | | oz) | | + + + + | Height | 160 cm (5' 3") | 05/29/2017618 PDT | + + + + | Body Mass Index | 45.81 | 05/29/2017618 PDT | + + + + Plan of Treatment + + + + + | Health Maintenance | Due Date | Last Done | Comments | + + + + + | Hepatitis C | | | | | Screening | 2 | | | + + + + + | Vaccine: | | | | | Dtap/Tdap/Td (1 - | 1 | | | | Tdap) | | | | + + + + + | BREAST CANCER | | | | | SCREENING (MAMM Q2 | 2 | | | | YEARS 50-74) | | | | + + + + + | Colorectal Cancer | | 02/18/2001 | | | Screening | 2 | | | | (Colonoscopy) | | | | + + + [...] / Lot | + +------+--------+ +--------+--------+--------+ | Bone Matrix Osteocel Pro 5cc | | N/A: | NUVASIVE - | | 07/09/ | [id number] | | - [id number]: Qty: 1 | | Spine | NVSV | | 2019 | 5 | | on 09/08/2014 by Bao Riley | | Lumbar | | | | /[id number] | | MD Krista | | | | | | 0511 / | + +------+--------+ +--------+--------+--------+ | Imp Spn Spcr 6 Deg 13x27 - | | N/A: | [employer] - | | 02/08/ | [id number] | | [id number]: Qty: 1 on | | Spine | MEDT | | 2019 | 7 / | | 09/08/2014 by Bao Riley, | | Lumbar | | | | /[id number] | | | | | | | | | + +------+--------+ +--------+--------+--------+ | Screw 4.75 Xtb Rhonda Mas | | N/A: | [employer] - | | | [id number] | | 6.5x50 - [id number]: | | Spine | MEDT | | | [id number] | | Qty: 2 on 09/08/2014 by Osvaldo, | | Lumbar | | | | / / | | Bao Velasco MD | | | | | | | + +------+--------+ +--------+--------+--------+ | Screw 4.75 Xtb Rhonda Mas | | N/A: | [employer] - | | | [id number] | | 7.5x45 - [id number]: | | Spine | MEDT | | | [id number] | | Qty: 2 on 09/08/2014 by Osvaldo, | | Lumbar | | | | / / | | Bao Velasco MD | | | | | | | + +------+--------+ +--------+--------+--------+ | Screw Set Slra Perc Ti 4.75 - | | N/A: | [employer] - | | | [id number] | | [id number]: Qty: 4 | | Spine | MEDT | | | 0 / / | | on 09/08/2014 by Bao Riley | | Lumbar | | | | | Alyse Velasco MD | | | | | | | + +------+--------+ +--------+--------+--------+ | Hema Perc Str Ccm 4.75m34hk - | | N/A: | [employer] - | | | [id number] | | [id number]: Qty: 2 on | | Spine | MEDT | | | 035 / | | 09/08/2014 by Bao Riley, | | Lumbar | | | | / | | MD | | | | | | | + +------+--------+ +--------+--------+--------+ | Bone Canc Chip 15cc 4-10mm - | | N/A: | RTI | | | [id number] | | [id number]: Qty: 1 | | Spine | BIOLOGICS | | | | | on 09/08/2014 by Bao Riley | | Lumbar | INC - RBIO | | | /[id number] | | MD Krista | | | | | | 1-033 | | | | | | | | / | + +------+--------+ +--------+--------+--------+ Procedures + +--------+ + + + | [...] section. | + +--------+ + + + | FL UGI | Routin | 07/05/2017 | Nausea | Results for this | | | e | 0808 PDT | | procedure are in the | | | | | | results section. | + +--------+ + + + from Last 3 Months Results MRI Abdomen w wo Contrast (07/11/2017 [...] diffusion weighted, | | axial T1, axial H4augosoiwemlx, coronal T1 postcontrast. Postcontrast images were | [...] | | | + +---------+ + + FL UGI (07/05/2017 0808) + + + [...] | | | + +---------+ + + from Last 3 Months Insurance + +--------+ +--------+ +---------+ | Payer | Benefi | Subscriber | Type | Phone | Address | | | t Plan | ID | | | | | | / | | | | | | | Group | | | | | + +--------+ +--------+ +---------+ | | CHAMPV | [id number] | Indemn | [phone] | | | A | | ity | [phone] | | + +--------+ +--------+ +---------+ | MEDICARE | MEDICA | [id number] | Medica | [phone] | | | | RE | | re | [phone] | | | | PART A | | | | | | | AND B | | | | | + +--------+ +--------+ +---------+ + +--------+ +--------+ + + | Guarantor Name | Accoun | Relation to | Date | Phone | Billing Address | | | t Type | Patient | of | | | | | | | | | | + +--------+ +--------+ + + | MERE AVILA | Person | Self [birth year] | Home: | [address] | | [place] | al/Fam | | [address] | +- | [place] | | | karla | | | [phone] | [address] | + +--------+ +--------+ + + | MERE AVILA | Third | Self | [birth year] | Home: | [address] | | [place]E | [place] | | 1950 | +- | [place] | | | Liabil | | | [phone] | [address] | | | ity | | | | | + +--------+ +--------+ + +
--- OUTSIDE RECORDS SUMMARY | ~2017-09-30 | XMS | Encounter Summary ---
Demographics + + + | Address | [address] | | | [place] [address] | + + + | Home Phone | | + + + | Preferred Language | Unknown | + + + | Marital Status | | + + + | Yazdanism Affiliation | 1009 | + + + | Race | Unknown | + + + | Ethnic Group | Unknown | + + + Author + + + | Author | [facility] | | | and [place] | + + + | Organization | [facility] | | | and [...] Team Providers + +------+ + | Care Aboriginal Education Teacher Name | Role | Phone | + [...] | MD Kelvin 55 | [address] | | | | | Procedures | [address] | [place], | | | | | MRI Abdomen | [place] | [place] | | | | | w wo | [place] | [address] | | | | | Contrast | [address] | Phone: | | | | | MRI Abdomen | Phone: | [phone] | | | | | w Contrast | [phone] | Fax: | | | | | | Fax: | [phone] | | | | | | [phone] | | +--------+--------+ + + + + Encounter Details +--------+ + + + + | Date | Type | Department | Care Team | Description | +--------+ + + + + | 07/02/ | Ancillary | [facility] | Kristie Roldan MD | Renal cyst | | 2018 | Orders | MED CTR XRAY [address] | | | | | [place] | [place], [place] | | | | | [place] [address] | [address] | | | | | [phone] | [phone] | | | | | | | [...] diffusion weighted, | | axial T1, axial S3ikyxqlruanrn, coronal T1 postcontrast. Postcontrast images were | [...]
--- OUTSIDE RECORDS SUMMARY | ~2017-09-30 | XMS | Clinical Summary ---
Demographics + + + | Address | [address] | | | [place] [address] | + + + | Home Phone | | + + + | Preferred Language | Unknown | + + + | Marital Status | | + + + | Faith Affiliation | 1009 | + + + | Race | Unknown | + + + | Ethnic Group | Unknown | + + + Author + + + | Author | [facility] | | | and [place] | + + + | Organization | [facility] | | | [...] Team Providers + +------+ + | Care Trust Mail Clerk Name | Role | Phone | + [...] + + | Sacroiliitis, not elsewhere classified ([facility]) | 08/09/2015 | + + + | Sacroiliitis ([facility]) | 07/11/2015 | + + + | Carpal tunnel syndrome, left | 05/24/2015 | + + + | Obesity, Class III, BMI 40-49.9 (morbid obesity) ([facility]) | 09/07/2014 | + + + | [...] | NUVASIVE - | | 07/09/ | [id number] | | - [id number]: Qty: 1 | | Spine | NVSV | | 2019 | 5 | | on 09/08/2014 by Bao Riley | | Lumbar | | | | /[id number] | | MD Krista | | | | | | 0511 / | + +------+--------+ +--------+--------+--------+ | Imp Spn Spcr 6 Deg 13x27 - | | N/A: | [employer] - | | 02/08/ | [id number] | | [id number]: Qty: 1 on | | Spine | MEDT | | 2019 | 7 / | | 09/08/2014 by Bao Riley, | | Lumbar | | | | /[id number] | | | | | | | | | + +------+--------+ +--------+--------+--------+ | Screw 4.75 Xtb Rhonda Mas | | N/A: | [employer] - | | | [id number] | | 6.5x50 - [id number]: | | Spine | MEDT | | | [id number] | | Qty: 2 on 09/08/2014 by Osvaldo, | | Lumbar | | | | / / | | Bao Velasco MD | | | | | | | + +------+--------+ +--------+--------+--------+ | Screw 4.75 Xtb Rhonda Mas | | N/A: | [employer] - | | | [id number] | | 7.5x45 - [id number]: | | Spine | MEDT | | | [id number] | | Qty: 2 on 09/08/2014 by Osvaldo, | | Lumbar | | | | / / | | Bao Velasco MD | | | | | | | + +------+--------+ +--------+--------+--------+ | Screw Set Slra Perc Ti 4.75 - | | N/A: | [employer] - | | | [id number] | | [id number]: Qty: 4 | | Spine | MEDT | | | 0 / / | | on 09/08/2014 by Bao Riley | | Lumbar | | | | | Alyse Velasco MD | | | | | | | + +------+--------+ +--------+--------+--------+ | Hema Perc Str Ccm 4.96n01dq - | | N/A: | [employer] - | | | [id number] | | [id number]: Qty: 2 on | | Spine | MEDT | | | 035 / | | 09/08/2014 by Bao Riley, | | Lumbar | | | | / | | MD | | | | | | | + +------+--------+ +--------+--------+--------+ | Bone Canc Chip 15cc 4-10mm - | | N/A: | RTI | | | [id number] | | [id number]: Qty: 1 | | Spine | BIOLOGICS | | | | | on 09/08/2014 by Bao Riley | | Lumbar | INC - RBIO | | | /[id number] | | MD Krista | | | [...] diffusion weighted, | | axial T1, axial Y6jklvmtgrqnda, coronal T1 postcontrast. Postcontrast images were | [...] +--------+ +--------+ +---------+ | | CHAMPV | [id number] | Indemn | [phone] | | | | A | | ity | [phone] | | + +--------+ +--------+ +---------+ | MEDICARE | MEDICA | [id number] | Medica | [phone] | | | [...] Self | [birth year] | Home: | [address] | | [place]NA[place] | al/Fam | | [address] | +- | [place] | | | karla | | | [phone] | [address] | + +--------+ +--------+ + + | MERE AVILA | Third | Self | [birth year] | Home: | [address] | | [place]E | [place] | | 1950 | +- | [place] | | | [place] | | | [phone] | [address] | | | ity | | | | | + +--------+ +--------+ + +
--- OUTSIDE RECORDS SUMMARY | ~2017-09-30 | XMS | Encounter Summary ---
Demographics + + + | Address | [address] | | | [place] [address] | + + + | Home Phone | | + + + | Preferred Language | Unknown | + + + | Marital Status | | + + + | Worship Affiliation | 1009 | + + + | Race | Unknown | + + + | Ethnic Group | Unknown | + + + Author + + + | Author | [facility] | | | and [place] | + + + | Organization | [facility] | | | [...] Team Providers + +------+ + | Care Geoint Analyst Name | Role | Phone | + [...] | MD Kelvin 55 | [address] | | | | | Procedures | [address] | [place], | | | | | MRI Abdomen | [place] | [place] | | | | | w wo | [place] | [address] | | | | | Contrast | [address] | Phone: | | | | | MRI Abdomen | Phone: | [phone] | | | | | w Contrast | [phone] | Fax: | | | | | | Fax: | [phone] | | | | | | [phone] | | +--------+--------+ + + + + [...] | MD Kelvin 55 | [address] | | | | | Procedures | [address] | [place], | | | | | MRI Abdomen | [place] | [place] | | | | | w wo | [place] | [address] | | | | | Contrast | [address] | Phone: | | | | | MRI Abdomen | Phone: | [phone] | | | | | w Contrast | [phone] | Fax: | | | | | | Fax: | [phone] | | | | | | [phone] | | +--------+--------+ + + + + [...] | MD Kelvin 55 | [address] | | | | | Procedures | [address] | [place], | | | | | MRI Abdomen | [place] | [place] | | | | | w wo | [place] | [address] | | | | | Contrast | [address] | Phone: | | | | | MRI Abdomen | Phone: | [phone] | | | | | w Contrast | [phone] | Fax: | | | | | | Fax: | [phone] | | | | | | [phone] | | +--------+--------+ + + + + Encounter Details +--------+ + + + + | Date | Type | Department | Care Team | Description | +--------+ + + + + | 07/11/ | Hospital | [facility] | Kristie Roldan MD | Renal cyst | | 2018 | Encounter | MED CTR MRI [address] [facility] | | | | | [place], | [place] | | | | | [place] [address] | [address] | | | | | [phone] | [phone] | | | | | | | [...] diffusion weighted, | | axial T1, axial B2aspdrwzodvgu, coronal T1 postcontrast. Postcontrast images were | [...]
[~2017-09-30 09:19] MED LIST: ALLEGRA60 MG PO; ASPIRIN EC81 MG PO; CALCIUM600 MG PO; CARAFATE1 GM PO; CHLORTABS4 MG PO; CRANBERRY200 MG PO; CYCLOBENZAPRINE10 MG PO; DICLOFENAC SODI25 MG PO; DIPHENHYDRAMINE25 MG PO; ESOMEPRAZOLE MA40 MG PO; GABAPENTIN100 MG PO; GABAPENTIN300 MG PO; HYDROCODON-ACE1 EA10 PO; LEVOXYL25 MCG PO; LOVASTATIN40 MG PO; MIRAPEX1 MG PO; NITROSTAT0.4 MG SL; ONE DAILY WOME1 EACH PO; PRILOSEC20 MG PO; PROAIR HFA8.5 GM IH; PROVENTIL HFA6.7 GM INH; SERTRALINE HCL50 MG PO; VITAMIN D1000 UNI1 PO
[2017-09-30] MEDS ORDERED: ZOFRAN ODT4 MG PO (13:33)
== END 2017-09-30 13:37 | disposition home or self-care (01) ==
LOC: ED 09:19
DX: R11.2 Nausea with vomiting, unspecified (principal); Z88.5 Allergy status to narcotic agent; Z88.1 Allergy status to other antibiotic agents; Z98.890 Other specified postprocedural states
CPT/HCPCS: 74177; 80053; 81001; 82150; 83605; 83690; 85025; 96361; 96374; 99284; J2405; J7030; Q9967

== ENCOUNTER 2021-04-09 14:50 | Emergency (ER) | payer MEDICARE, OTHER ==
[~2021-04-09] VITALS: Ht 157.5 cm; Wt 82.5 kg
[~2021-04-09 14:50] MED LIST changes: +KETOROLAC TROME10 MG PO; +LINZESS145 MCG PO; +ZOFRAN ODT4 MG PO
[2021-04-09] MEDS ORDERED: LEVOTHYROXINE125 MCG PO (15:15)
[2021-04-09] MEDS ORDERED: LEVOTHYROXINE137 MCG PO (15:15)
--- NOTE | 2021-04-11 13:43 | EKG ---
[facility] [address] [facility] [place] [address] Signed Normal sinus rhythm Normal ECG Confirmed by CATRACHO SIMS MD ([id number]) on 04/11/2021 1:42:54 PM Electronically Signed By: CATRACHO SIMS MD 04/11/21 1343 PATIENT NAME: MAHESH GALLAGHER SHANAE Electrocardiogram DATE OF : 52 PHYSICIAN: CATRACHO SIMS MD REPORT #: [id number] REPORT IS CONFIDENTIAL AND NOT TO BE RELEASED WITHOUT AUTHORIZATION
== END 2021-04-09 18:50 | disposition home or self-care (01) ==
LOC: ED 14:50
DX: R07.89 Other chest pain (principal); K21.9 Gastro-esophageal reflux disease without esophagitis; Z88.5 Allergy status to narcotic agent; Z88.1 Allergy status to other antibiotic agents; Z79.899 Other long term (current) drug therapy; Z79.51 Long term (current) use of inhaled steroids
CPT/HCPCS: 36415; 71046; 80053; 83690; 83735; 84484; 85025; 85379; 93005; 93010; 96374; 96375; 96376; 99285-25; A9270; J1170; J2405

== ENCOUNTER 2024-10-05 13:28 | Emergency (ER) | payer MEDICARE ==
[~2024-10-05] VITALS: Ht 157.5 cm; Wt 90.8 kg
[~2024-10-05 13:28] MED LIST changes: +LEVOTHYROXINE112 MCG; +LEVOTHYROXINE137 MCG PO
--- OUTSIDE RECORDS SUMMARY | 2024-10-05 13:38 | XMS ---
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 E.Shelli VISIT COUNT (12 MO.) [address] [place] [address] [facility] TOTAL 2 NOTE: Visits indicate total known visits. ED/UCC VISIT TRACKING (12 MO.) 10/05/2024 13:31 OZZY Couch TYPE: Emergency COMPLAINT: - DIARRHEA 09/17/2024 09:07 Roxanna Murray MD TYPE: Emergency COMPLAINT: - ANESTHESIA OF SKIN - CHEST PAIN UNSPECIFIED - Chest Pain_chest pain - OTHER SPEC SOFT TISSUE DISORDERS DIAGNOSES: 0. Chest pain, unspecified 1. Anxiety disorder, unspecified 5. Other chest pain 6. Hypothyroidism, unspecified 7. Gastro-esophageal reflux disease without esophagitis 8. 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 Personal history of nicotine dependence 10. Hormone replacement therapy 11. Other mcc (current) drug therapy INPATIENT VISIT TRACKING (12 MO.) No inpatient visits to display in this time frame [email or web address]
[2024-10-05] MEDS ORDERED: SPIRONOLACTONE25 MG PO (17:40)
[2024-10-05] MEDS ORDERED: PREDNISOLONE ACE5 ML OPTH (17:41)
[2024-10-05 17:51] LABS: ALT (SGPT) 36.0 U/L (14-59); AST (SGOT) 63.0 U/L (15-37); GLOMERULAR FILTRATION RATE,EST 51.0 mL/min (>60); PROTEIN, TOTAL 6.1 g/dL (6.4-8.2); UREA NITROGEN 8.0 mg/dL (7-18)
[2024-10-05] MEDS ORDERED: FUROSEMIDE 40 MG/4 ML VIAL IV ONE (19:15)
[2024-10-05] MEDS ORDERED: GABAPENTIN 300 MG CAP PO ONE (19:15)
[2024-10-05] MEDS ORDERED: POTASSIUM CHLORIDE 10 MEQ TABCR PO ONE ×2 (19:15→21:00)
[2024-10-05] MEDS ORDERED: KETOROLAC TROMETHAMINE 30 MG/ML VIAL IV ONE (19:45)
[2024-10-05 19:52] LABS: BLOOD/HGB, URINE NEGATIVE (Negative); KETONE, URINE NEGATIVE (Negative); LEUK ESTERASE, URINE NEGATIVE (negative); NITRITE, URINE NEGATIVE (negative)
[2024-10-05] MEDS ORDERED: NEURONTIN100 MG PO (20:57)
[2024-10-05] MEDS ORDERED: POTASSIUM CHLO20 ME1 PO (20:58)
[2024-10-05 21:20] VITALS: BP 120/99
--- NOTE | 2024-10-06 15:48 | EKG ---
[facility] [address] [facility] [place] [address] Signed Atrial fibrillation Low voltage QRS Cannot rule out Anterior infarct , age undetermined Abnormal ECG When compared with ECG of 09-Apr-2021 15:06:07 Atrial fibrillation has replaced Normal sinus rhythm Confirmed by Luis E Benjamin MD ([id number]) on 10/06/2024 3:48:35 PM Electronically Signed By: LUIS E BENJAMIN MD 10/06/24 1548 PATIENT NAME: VIKIMAHESH LEANN Electrocardiogram DATE OF : 52 PHYSICIAN: LUIS E BENJAMIN MD REPORT #: [id number] REPORT IS CONFIDENTIAL AND NOT TO BE RELEASED WITHOUT AUTHORIZATION
== END 2024-10-05 21:23 | disposition home or self-care (01) ==
LOC: ED 13:28
PROVIDERS: Emergency Medicine
DX: R60.0 Localized edema (principal); I48.91 Unspecified atrial fibrillation; G62.9 Polyneuropathy, unspecified; Z88.5 Allergy status to narcotic agent; Z88.1 Allergy status to other antibiotic agents; Z79.890 Hormone replacement therapy; Z79.52 Long term (current) use of systemic steroids; Z79.899 Other long term (current) drug therapy
CPT/HCPCS: 36415; 71045; 80053; 81003; 83735; 85025; 87045; 87046; 93005; 93010; 96374; 96375; 99284-25; A9270; J1885; J1938

== ENCOUNTER 2024-10-28 00:24 | Emergency (ER) | payer OTHER ==
[~2024-10-28] VITALS: Ht 157.5 cm; Wt 76.0 kg
[~2024-10-28 00:24] MED LIST changes: +NEURONTIN100 MG PO; +POTASSIUM CHLO20 ME1 PO; +PREDNISOLONE ACE5 ML OPTH; +SPIRONOLACTONE25 MG PO
--- OUTSIDE RECORDS SUMMARY | 2024-10-28 00:31 | XMS ---
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 E.Shelli VISIT COUNT (12 MO.) [address] [place] [address] [facility] TOTAL 3 NOTE: Visits indicate total known visits. ED/UCC VISIT TRACKING (12 MO.) 10/28/2024 00:25 OZZY Couch TYPE: Emergency COMPLAINT: - DEHYDRATION 10/05/2024 13:31 OZZY Couch TYPE: Emergency COMPLAINT: - DIARRHEA DIAGNOSES: - Allergy status to narcotic agent - Allergy status to other antibiotic agents - Diarrhea, unspecified - Hormone replacement therapy - Localized edema - skilled nursing (current) use of systemic steroids - Other intermediate (current) drug therapy - Polyneuropathy, unspecified - Unspecified atrial fibrillation 09/17/2024 09:07 Roxanna LONG TYPE: Emergency COMPLAINT: - ANESTHESIA OF SKIN - CHEST PAIN UNSPECIFIED - Chest Pain_chest pain - OTHER SPEC SOFT TISSUE DISORDERS DIAGNOSES: 0. Chest pain, unspecified 1. Anxiety disorder, unspecified 5. Other chest pain 6. Hypothyroidism, unspecified 7. Gastro-esophageal reflux disease without esophagitis 8. skilled nursing (current) use of aspirin 9. Personal history of nicotine dependence 10. Hormone replacement therapy 11. 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
[2024-10-28] MEDS ORDERED: GABAPENTIN100 MG PO (00:39)
[2024-10-28] MEDS ORDERED: FUROSEMIDE40 MG PO (00:40)
[2024-10-28] MEDS ORDERED: ELIQUIS5 MG PO (00:41)
[2024-10-28 00:43] LABS: BASOPHILS 0.5 % (0.1-1.2); EOSINOPHILS 0.3 % (0.7-5.8); LYMPHOCYTES 34.2 % (19.3-51.7); MCH 34.2 PG (25.6-32.2); MCHC 34.7 g/dL (32.2-35.5); MCV 98.3 fL (79.4-94.8); MONOCYTES 5.7 % (4.7-12.5); NEUTROPHILS 58.3 % (34.0-71.1); RBC 3.60 M/uL (3.93-5.22)
[2024-10-28 00:58] LABS: ALT (SGPT) 23.0 U/L (14-59); AST (SGOT) 24.0 U/L (15-37); GLOMERULAR FILTRATION RATE,EST 25.0 mL/min (>60); PROTEIN, TOTAL 6.5 g/dL (6.4-8.2); UREA NITROGEN 22.0 mg/dL (7-18)
[2024-10-28] MEDS ORDERED: LACTATED RINGER'S 1,000 ML IV ONE ×2 (01:00→03:00)
[2024-10-28] MEDS ORDERED: POTASSIUM CHLORIDE 10 MEQ TABCR PO ONE ×2 (01:45→03:00)
[2024-10-28] MEDS ORDERED: MAGNESIUM OXIDE 400 MG TABLET PO ONE (01:45)
[2024-10-28 01:58] LABS: BLOOD/HGB, URINE NEGATIVE (Negative); KETONE, URINE NEGATIVE (Negative); LEUK ESTERASE, URINE NEGATIVE (negative); NITRITE, URINE NEGATIVE (negative)
[2024-10-28 02:05] LABS: INR 1.86 (0.80-1.30); PROTIME 20.3 Sec (11.2-14.2)
[2024-10-28 03:11] LABS: ABO B; RH POSITIVE
[2024-10-28 03:12] LABS: ANTIBODY SCREEN NEGATIVE
[2024-10-28] MEDS ORDERED: MAGNESIUM OXID400 M1 PO (04:32)
[2024-10-28 04:58] VITALS: BP 102/75
--- NOTE | 2024-10-28 18:50 | EKG ---
[facility] [address] [facility] [place] [address] Signed Atrial fibrillation Abnormal ECG When compared with ECG of 05-OCT-2024 19:32, Nonspecific T wave abnormality no longer evident in Anterior leads Confirmed by Connie Vyas DO ([id number]) on 10/28/2024 6:50:35 PM Electronically Signed By: CONNIE VYAS DO 10/28/241849 PATIENT NAME: MAHESH DREW Electrocardiogram DATE OF : 52 PHYSICIAN: CONNIE VYAS DO REPORT #: [id number] REPORT IS CONFIDENTIAL AND NOT TO BE RELEASED WITHOUT AUTHORIZATION
== END 2024-10-28 04:58 | disposition home or self-care (01) ==
LOC: ED 00:24
PROVIDERS: Internal Medicine
DX: E86.0 Dehydration (principal); E87.6 Hypokalemia; E83.42 Hypomagnesemia; Z79.899 Other long term (current) drug therapy; Z88.5 Allergy status to narcotic agent; Z88.1 Allergy status to other antibiotic agents
CPT/HCPCS: 36415; 71045; 80053; 81003; 83735; 83880; 84484; 85014; 85018; 85025; 85610; 85730; 86850; 86900; 86901; 93005; 93010; 96360; 96361; 99285-25; A9270; J7121

== ENCOUNTER 2024-10-30 01:30 | Emergency (ER) | payer MEDICARE ==
[~2024-10-30] VITALS: Ht 157.5 cm; Wt 86.0 kg
[~2024-10-30 01:30] MED LIST changes: +ELIQUIS5 MG PO; +FUROSEMIDE40 MG PO; +MAGNESIUM OXID400 M1 PO
--- OUTSIDE RECORDS SUMMARY | 2024-10-30 01:36 | XMS ---
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 E.Shelli VISIT COUNT (12 MO.) [address] [place] [address] [facility] TOTAL 4 NOTE: Visits indicate total known visits. ED/UCC VISIT TRACKING (12 MO.) 10/30/2024 01:30 [place]ZZY [place] TYPE: Emergency COMPLAINT: - AC FELL ON CHEST 10/28/2024 00:25 OZZY [place] TYPE: Emergency COMPLAINT: - DEHYDRATION DIAGNOSES: - Allergy status to narcotic agent - Allergy status to other antibiotic agents - Dehydration - Hypokalemia - Hypomagnesemia - Other fatigue - Other rn long term care (current) drug therapy 10/05/2024 13:31 OZZY [place] TYPE: Emergency COMPLAINT: - DIARRHEA DIAGNOSES: - Allergy status to narcotic agent - Allergy status to other antibiotic agents - Diarrhea, unspecified - Hormone replacement therapy - Localized edema - half-way (current) use of systemic steroids - Other rn long term care (current) drug therapy - Polyneuropathy, unspecified - Unspecified atrial fibrillation 09/17/2024 09:07 Mirsatnam Tg AdrianaStefania LONG TYPE: Emergency COMPLAINT: - ANESTHESIA OF SKIN - CHEST PAIN UNSPECIFIED - Chest Pain_chest pain - OTHER SPEC SOFT TISSUE DISORDERS DIAGNOSES: 0. Chest pain, unspecified 1. Anxiety disorder, unspecified 5. Other chest pain 6. Hypothyroidism, unspecified 7. Gastro-esophageal reflux disease without esophagitis 8. half-way (current) use of aspirin 9. Personal history of nicotine dependence 10. Hormone replacement therapy 11. Other rn long term care (current) drug therapy INPATIENT VISIT TRACKING (12 MO.) No inpatient visits to display in this time frame [email or web address]
[2024-10-30] MEDS ORDERED: LEVOTHYROXINE112 MCG PO (01:54)
[2024-10-30] MEDS ORDERED: ELIQUIS5 MG PO (01:56)
[2024-10-30] MEDS ORDERED: VALACYCLOVIR1000 MG PO (01:57)
[2024-10-30] MEDS ORDERED: ACETAMINOPHEN 500 MG TAB PO ONE (02:15)
[2024-10-30] MEDS ORDERED: ACETAMINOPHEN 500 MG TAB ONE (04:28)
[2024-10-30] MEDS ORDERED: CYCLOBENZAPRINE10 MG PO (06:41)
[2024-10-30 07:10] VITALS: BP 88/54
--- NOTE | 2024-10-30 19:52 | EKG ---
[facility] [address] [facility] [place] [address] Signed Atrial fibrillation with rapid ventricular response Abnormal ECG When compared with ECG of 28-OCT-2024 00:53, Non-specific change in ST segment in Anterior leads QT has shortened Confirmed by Connie Vyas DO ([id number]) on 10/30/2024 7:52:02 PM Electronically Signed By: CONNIE VYAS DO 10/30/241951 PATIENT NAME: MAHESH DREW Electrocardiogram DATE OF : 52 PHYSICIAN: CONNIE VYAS DO REPORT #: [id number] REPORT IS CONFIDENTIAL AND NOT TO BE RELEASED WITHOUT AUTHORIZATION
== END 2024-10-30 06:59 | disposition home or self-care (01) ==
LOC: ED 01:30
DX: S29.011A Strain of muscle and tendon of front wall of thorax, initial encounter (principal); E03.9 Hypothyroidism, unspecified; I48.91 Unspecified atrial fibrillation; K21.9 Gastro-esophageal reflux disease without esophagitis; Z88.5 Allergy status to narcotic agent; Z88.1 Allergy status to other antibiotic agents; Z79.890 Hormone replacement therapy; Z79.01 Long term (current) use of anticoagulants; Z79.899 Other long term (current) drug therapy; X50.0XXA Overexertion from strenuous movement or load, initial encounter
CPT/HCPCS: 71045; 93005; 93010; 99284-25; A9270

== ENCOUNTER 2024-11-03 19:55 | Emergency (ER) | payer MEDICARE ==
[~2024-11-03] VITALS: Ht 157.5 cm; Wt 167.0 kg
[~2024-11-03 19:55] MED LIST changes: +LEVOTHYROXINE112 MCG PO; +VALACYCLOVIR1000 MG PO
[2024-11-03] MEDS ORDERED: LACTATED RINGER'S 1,000 ML IV PRN (20:00)
--- OUTSIDE RECORDS SUMMARY | 2024-11-03 20:01 | XMS ---
PreManage Notification: MAHESH DREW Security Educational Rec[employer]iter Events No recent Security Events currently on file CRITERIA MET - [facility] - 2 Visits in 30 Days CARE PROVIDERS NIKI RUSSELL Internal Medicine: Gastroenterology Current PHONE: [phone] [facility] has no Care Guidelines for this patient. E.Shelli VISIT COUNT (12 MO.) [address] TOTAL 5 NOTE: Visits indicate total known visits. 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 - Other roasterman (current) drug therapy - Overexertion from strenuous movement or load, initial encounter - Strain of muscle and tendon of front wall of thorax, initial encounter - Unspecified atrial fibrillation 10/28/2024 00:25 [facility] [place] TYPE: Emergency COMPLAINT: - DEHYDRATION DIAGNOSES: - Allergy status to narcotic agent - Allergy status to other antibiotic agents - Dehydration - Hypokalemia - Hypomagnesemia - Other fatigue - Other [facility] (current) drug therapy 10/05/2024 13:31 OZZY Couch TYPE: Emergency COMPLAINT: - DIARRHEA DIAGNOSES: - Allergy status to narcotic agent - Allergy status to other antibiotic agents - Diarrhea, unspecified - Hormone replacement therapy - Localized edema - [facility] (current) use of systemic steroids - Other roasterman (current) drug therapy - Polyneuropathy, unspecified - Unspecified atrial fibrillation 09/17/2024 09:07 Roxanna LONG TYPE: Emergency COMPLAINT: - ANESTHESIA OF SKIN - CHEST PAIN UNSPECIFIED - Chest Pain_chest pain - OTHER SPEC SOFT TISSUE DISORDERS DIAGNOSES: 0. Chest pain, unspecified 1. Anxiety disorder, unspecified 5. Other chest pain 6. Hypothyroidism, unspecified 7. 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 Personal history of nicotine dependence 10. Hormone replacement therapy 11. Other roasterman (current) drug therapy INPATIENT VISIT TRACKING (12 MO.) No inpatient visits to display in this time frame [email or web address]
[2024-11-03] MEDS ORDERED: SODIUM CHLORIDE 0.9% 1,000 ML IV PRN (20:30)
[2024-11-03 21:13] LABS: INFLUENZA B NAA NEGATIVE (NEGATIVE); RESPIRATORY SYNCYTIAL VIR NAA NEGATIVE (NEGATIVE)
[2024-11-03 21:13] LABS: BASOPHILS 0.2 % (0.1-1.2); EOSINOPHILS 0.1 % (0.7-5.8); LYMPHOCYTES 22.9 % (19.3-51.7); MCH 34.5 PG (25.6-32.2); MCHC 34.2 g/dL (32.2-35.5); MCV 100.7 fL (79.4-94.8); MONOCYTES 6.2 % (4.7-12.5); NEUTROPHILS 69.5 % (34.0-71.1); RBC 2.90 M/uL (3.93-5.22)
[2024-11-03 21:39] LABS: BLOOD/HGB, URINE NEGATIVE (Negative); KETONE, URINE TRACE (Negative); LEUK ESTERASE, URINE NEGATIVE (negative); NITRITE, URINE NEGATIVE (negative)
[2024-11-03 21:44] LABS: LACTIC ACID, BLOOD 2.1 mmol/L (0.4-2.0)
[2024-11-03 21:45] LABS: BACTERIA, URINE RARE /hpf (negative); CRYSTALS, URINE NONE SEEN (0-1+); EPITHELIAL CELLS, URINE SQUAMOUS 1+ /lpf (0-1+)
[2024-11-03 21:46] LABS: CASTS, URINE HYALINE 3+ \\lpf; REFLEX CULTURE, URINE No (No)
[2024-11-03 22:09] LABS: INR 3.16 (0.80-1.30); PROTIME 30.7 Sec (11.2-14.2)
[2024-11-03 22:14] LABS: ALT (SGPT) 14.0 U/L (14-59); AST (SGOT) 18.0 U/L (15-37); GLOMERULAR FILTRATION RATE,EST 37.0 mL/min (>60); PROTEIN, TOTAL 5.1 g/dL (6.4-8.2); UREA NITROGEN 12.0 mg/dL (7-18)
[2024-11-03] MEDS ORDERED: SODIUM CHLORIDE 0.9% 1,000 ML IV SCH (22:30)
[2024-11-04] MEDS ORDERED: DIPHENOXYLATE/ATROPINE 1 EA TAB PO ONE (01:45)
[2024-11-04] MEDS ORDERED: MAGNESIUM OXIDE 400 MG TABLET PO ONE (03:45)
[2024-11-04] MEDS ORDERED: LOMOTIL TABLET1 EACH PO (04:54)
[2024-11-04] MEDS ORDERED: ONDANSETRON ODT8 MG PO (04:54)
[2024-11-04 05:50] VITALS: BP 102/70
== END 2024-11-04 05:51 | disposition home or self-care (01) ==
LOC: ED 19:55
PROVIDERS: Family Medicine
DX: R11.2 Nausea with vomiting, unspecified (principal); R10.31 Right lower quadrant pain; E03.9 Hypothyroidism, unspecified; I48.91 Unspecified atrial fibrillation; K21.9 Gastro-esophageal reflux disease without esophagitis; Z79.899 Other long term (current) drug therapy; Z79.890 Hormone replacement therapy; Z79.01 Long term (current) use of anticoagulants; Z88.5 Allergy status to narcotic agent; Z88.1 Allergy status to other antibiotic agents
CPT/HCPCS: 36415; 51702; 71045; 74177; 80053; 81001; 83605; 85025; 85610; 87040; 87502; 96361; 96365; 96375; 99284-25; J0696; J2405; J7030; J7121; Q9967; U0002